=== PATIENT | female | born 1975 | race Caucasian/White ===

== ENCOUNTER 2019-02-15 09:10 | Emergency (ER) | payer MEDICAID ==
[~2019-02-15] VITALS: Ht 165.1 cm; Wt 69.9 kg
[2019-02-15] MEDS ORDERED: TOPI100T24 PO (09:39)
[2019-02-15] MEDS ORDERED: LAMO200T3 PO (09:40)
[2019-02-15] MEDS ORDERED: CARB200T PO (09:40)
[2019-02-15] MEDS ORDERED: PHEN100T2 PO (09:41)
--- NOTE | 2019-02-15 09:45 | NUR ---
PATIENT PRESENTS TO ED TODAY FOR GRAND MAL SEIZURE THIS AM WITH LOC (1 MINUTE PER MOTHER WHO WAS WITH PATIENT AT THE TIME) AT 0200 AND 0700, REPORTS MIGRAINES AND EPISTAXIS YESTERDAY, CURRENT HEADACHE, UNKNOWN IF HIT HEAD. DENIES ANY OTHER S/S/PAIN PRESENTLY. HX OF SEIZURES. REPLANTER IN PLACE, SEIZURE PRECAUTIONS IN PLACE. PATIENT A+OX4. NAD NOTED, PATIENT TEXTING ON PHONE. VSS, LAB AT BEDSIDE, AWAITING RESULTS, CALL LIGHT WITHIN REACH.
[2019-02-15] MEDS ORDERED: ACETAMINOPHEN 500 MG TABLET ONE (09:50)
[2019-02-15] MEDS ORDERED: ACETAMINOPHEN 500 MG TABLET PO ONE (10:00)
[2019-02-15 10:03] LABS: BASOPHILS # (AUTO) 0.03 x10^3/uL (0-0.1); BASOPHILS % (AUTO) 1 % (0-1); EOSINOPHILS # (AUTO) 0.13 x10^3/uL (0-0.4); EOSINOPHILS % (AUTO) 3 % (1-7); LYMPHOCYTES # (AUTO) 2.05 x10^3/uL (1-3.4); LYMPHOCYTES % (AUTO) 44 % (22-44); MD NO; MEAN CORPUSCULAR HEMOGLOBIN 32.7 pg (27.0-34.8); MEAN CORPUSCULAR HGB CONC 34.1 g/dL (32.4-35.8); MEAN CORPUSCULAR VOLUME 95.6 fL (80-100); MEAN PLATELET VOLUME 7.6 fL (7.4-10.4); MONOCYTES # (AUTO) 0.24 x10^3/uL (0.2-0.8); MONOCYTES % (AUTO) 5 % (2-9); NEUTROPHILS # (AUTO) 2.27 x10^3/uL (1.8-6.8); NEUTROPHILS % (AUTO) 48 % (42-75); PLATELET COUNT 273 x10^3/uL (130-400); RED BLOOD COUNT 4.03 x10^6/uL (3.82-5.3); RED CELL DISTRIBUTION WIDTH 13.9 % (9.6-15.2)
[2019-02-15 10:10] LABS: ANION GAP 7 mmol/L (5-15); CALCIUM 8.4 mg/dL (8.5-10.1); CHLORIDE 117 mmol/L (98-107); CREATININE 0.86 mg/dL (0.55-1.02)
[2019-02-15 10:11] LABS: ALANINE AMINOTRANSFERASE 18 U/L (12-78); ALBUMIN 3.7 g/dL (3.4-5.0)
[2019-02-15 10:15] LABS: ALKALINE PHOSPHATASE 67 U/L (45-117); BILIRUBIN,TOTAL 0.2 mg/dL (0.2-1.0); TOTAL PROTEIN 6.7 g/dL (6.4-8.2)
[2019-02-15 10:58] VITALS: BP 118/84
--- NOTE | 2019-02-15 10:58 | NUR ---
VS UPDATED IN CHART, PATIENT SITTING IN GURNEY, NAD NOTED. AWAITING RESULTS.
--- NOTE | 2019-02-15 11:33 | NUR ---
Patient/Caregiver given discharge instructions and they have confirmed that they understand the instructions. Patient ambulatory with steady gait.
== END 2019-02-15 11:35 | disposition home or self-care (01) ==
LOC: ED 09:59
DX: G40.319 Generalized idiopathic epilepsy and epileptic syndromes, intractable, without status epilepticus (principal); E86.0 Dehydration; Z72.9 Problem related to lifestyle, unspecified
CPT/HCPCS: 36415; 80053; 80156; 80184; 84703; 85025; 99283

== ENCOUNTER 2021-04-04 08:29 | Emergency (ER) | payer MEDICAID ==
[~2021-04-04] VITALS: Ht 165.1 cm; Wt 75.0 kg
[~2021-04-04 08:29] MED LIST: CARB200T PO; LAMO200T3 PO; PHEN100T2 PO; TOPI100T24 PO
--- NOTE | 2021-04-04 09:50 | NUR ---
greige goods examiner note: Pt to room from lobby.
--- NOTE | 2021-04-04 10:00 | NUR ---
PT CAME IN [place], COUGH, CONGESTION, SOB X 4 DAYS. PT REPORTS SHE HAS HAD HER COVID VACCINES. PT ALSO REPORTS HAVING A SZ YESTERDAY. EKG COMPLETE. PT RESTING IN [facility]. BLANKET PROVIDED
[2021-04-04] MEDS ORDERED: DIPHENHYDRAMINE 50 MG/ML, 1ML IVPush ONE (10:30)
[2021-04-04] MEDS ORDERED: METOCLOPRAMIDE 5 MG/ML, 2ML IVPush ONE (10:30)
[2021-04-04] MEDS ORDERED: SODIUM CHLORIDE 0.9% 1,000ML IVBOLUS ONE (10:30)
[2021-04-04] MEDS ORDERED: SODIUM CHLORIDE FLUSH 10ML SYR IVF ONE (10:30)
[2021-04-04] MEDS ORDERED: KETOROLAC 30 MG/1 ML IVPush ONE (10:30)
[2021-04-04] MEDS ORDERED: DIPHENHYDRAMINE 50 MG/ML, 1ML ONE (10:31)
[2021-04-04] MEDS ORDERED: KETOROLAC 30 MG/1 ML ONE (10:31)
[2021-04-04] MEDS ORDERED: METOCLOPRAMIDE 5 MG/ML, 2ML ONE (10:31)
[2021-04-04 10:41] LABS: BASOPHILS % (AUTO) 1 % (0-1); EOSINOPHILS % (AUTO) 3 % (1-7); LYMPHOCYTES % (AUTO) 46 % (22-44); MEAN CORPUSCULAR HEMOGLOBIN 33.1 pg (27.0-34.8); MEAN PLATELET VOLUME 7.8 fL (7.4-10.4); MONOCYTES % (AUTO) 9 % (2-9); NEUTROPHILS % (AUTO) 41 % (42-75); PLATELET COUNT 237 x10^3/uL (130-400); RED BLOOD COUNT 4.11 x10^6/uL (3.82-5.3); RED CELL DISTRIBUTION WIDTH 12.7 % (9.6-15.2)
[2021-04-04 10:49] VITALS: BP 135/85
[2021-04-04 10:53] LABS: ALANINE AMINOTRANSFERASE 27 U/L (12-78); ALBUMIN 3.2 g/dL (3.4-5.0); ANION GAP 6 mmol/L (5-15); CALCIUM 8.1 mg/dL (8.5-10.1); CHLORIDE 114 mmol/L (98-107); CREATININE 0.54 mg/dL (0.55-1.02)
[2021-04-04 10:56] LABS: ALKALINE PHOSPHATASE 66 U/L (45-117); BILIRUBIN,TOTAL 0.3 mg/dL (0.2-1.0); TOTAL PROTEIN 6.8 g/dL (6.4-8.2)
== END 2021-04-04 12:58 | disposition home or self-care (01) ==
LOC: ED 10:29
DX: G43.909 Migraine, unspecified, not intractable, without status migrainosus (principal); B34.9 Viral infection, unspecified; Z20.822 Contact with and (suspected) exposure to COVID-19; G40.909 Epilepsy, unspecified, not intractable, without status epilepticus; F17.200 Nicotine dependence, unspecified, uncomplicated
CPT/HCPCS: 36415; 71045; 80053; 85025; 93005; 96361; 96374; 96375; 99285; J1200; J1885; J2765; J7030; U0003; U0005

== ENCOUNTER 2021-04-26 11:45 | Emergency (ER) | payer MEDICAID ==
[~2021-04-26] VITALS: Ht 165.1 cm; Wt 76.8 kg
[2021-04-26 11:49] VITALS: BP 124/85
--- NOTE | 2021-04-26 13:07 | NUR ---
pa at bs
[2021-04-26] MEDS ORDERED: ACETAMINOPHEN 325 MG TABLET ONE (13:23)
[2021-04-26] MEDS ORDERED: ACETAMINOPHEN 325 MG TABLET PO ONE (14:00)
--- NOTE | 2021-04-26 14:12 | NUR ---
Patient given discharge instructions and they have confirmed that they understand the instructions. Patient ambulatory with steady gait.
== END 2021-04-26 14:16 | disposition home or self-care (01) ==
LOC: ED 13:30
DX: S83.412A Sprain of medial collateral ligament of left knee, initial encounter (principal); S83.422A Sprain of lateral collateral ligament of left knee, initial encounter; G40.909 Epilepsy, unspecified, not intractable, without status epilepticus; X50.0XXA Overexertion from strenuous movement or load, initial encounter; Y93.89 Activity, other specified; Y92.009 Unspecified place in unspecified non-institutional (private) residence as the place of occurrence of the external cause; Y99.8 Other external cause status
CPT/HCPCS: 29505; 99283